=== PATIENT | female | born 1990 | race Caucasian/White ===

== ENCOUNTER 2022-02-02 18:33 | Day surgery (SDC) | payer OTHER ==
[2022-02-02 19:36] VITALS: BMI 26.8
[2022-02-02 20:56] LABS: SARS-CoV-2 NAA Rapid Test Not Detected (NotDetected)
[2022-02-02] MEDS ORDERED: hydrALAZINE 20 MG/ML VIAL SLOW IVP PRN (21:14)
== END 2022-02-02 21:14 | disposition home or self-care (01) ==
LOC: CSHLD/OP 18:33
PROVIDERS: ATTEND Obstetrics & Gynecology
DX: O26.893 Other specified pregnancy related conditions, third trimester (principal); M79.10 Myalgia, unspecified site; R50.9 Fever, unspecified; Z3A.31 31 weeks gestation of pregnancy; Z79.82 Long term (current) use of aspirin; Z20.822 Contact with and (suspected) exposure to COVID-19; Z98.890 Other specified postprocedural states
CPT/HCPCS: 99282; U0002

== ENCOUNTER 2022-03-20 11:20 | Outpatient (CLI) | payer OTHER | END 2022-03-20 11:21 | disposition home or self-care (01) | LOC: CSHLAB 11:20 | PROVIDERS: ATTEND Obstetrics & Gynecology | DX: Z20.822 Contact with and (suspected) exposure to COVID-19 (principal) | CPT/HCPCS: 87811 ==